=== PATIENT | female | born 1980 | race American Indian/Alaskan Native ===

== ENCOUNTER 2017-08-13 14:55 | Outpatient (CLI) | payer OTHER ==
--- NOTE | 2017-08-14 01:17 | Ultrasound Report ---
FINAL REPORT PROCEDURE: US THRYROID SCAN TECHNIQUE: Focused real-time sonography in multiple planes of the thyroid gland was performed with image documentation. CPT 88046 HISTORY: Nontoxic goiter, unspecified. COMPARISON: No prior studies are available for comparison. FINDINGS: The right lobe of the thyroid gland measures 6.1 x 1.9 x 3.4 cm. There is a 5 mm relatively isoechoic nodule with hypoechoic rim in the mid lateral portion of the right lobe of the thyroid gland. Echotexture relatively homogeneous. Left of the lobe of the thyroid gland measures 6.1 x 2.2 x 2.6 cm. There is a heterogeneous 3.7 x 1.7 x 2.8 cm nodule in the inferior medial aspect of the left lobe of the thyroid gland. Echotexture is relatively homogeneous. Heterogeneous oval 2.1 x 0.7 x 1.2 cm nodule in the isthmus. IMPRESSION: Thyroid nodules, etiology is uncertain. Nodule in the right lobe of the thyroid gland almost has the appearance of a small lymph node. Consider short-term follow-up with thyroid ultrasound. Nuclear medicine examination may be helpful to further characterize activity of nodules and for thyroid uptake. If there is continued clinical concern, consider FNA of the thyroid nodules, particularly dominant nodule in the left lobe of the thyroid gland.
== END 2017-08-13 14:56 | disposition home or self-care (01) ==
LOC: US 14:55
DX: E04.9 Nontoxic goiter, unspecified (principal)
CPT/HCPCS: 76536